=== PATIENT | female | born 1970 | race Asian ===

== ENCOUNTER → 2017-10-10 | Outpatient (REF) | payer OTHER ==
[2017-10-10 14:44] LABS: RHEUMATOID FACTOR QUANT < 10.0 IU/ML (0-15.0)
[2017-10-11 14:11] LABS: ANTINUCLEAR ANTIBODIES DIRECT Negative (Negative)
== END ==
LOC: M LAB REF 13:10
DX: M15.9 Polyosteoarthritis, unspecified (principal); M25.561 Pain in right knee
CPT/HCPCS: 86038

== ENCOUNTER 2018-01-05 22:38 | Emergency (ER) | payer OTHER ==
[2018-01-05 23:27] LABS: BASO % 0.3 % (0.0-1.0); EOS # 0.4 10^3/uL (0.0-0.50); HEMATOCRIT 37.9 % (36.0-47.0); HEMOGLOBIN 12.4 g/dl (12.0-15.5); IMMATURE GRANULOCYTE % 0.7 % (0-3.0); LYMPH % 24.6 % (24.0-44.0); MEAN CORPUSCULAR HEMOGLOBIN 28.1 pg (27.0-33.0); MEAN CORPUSCULAR HGB CONC 32.7 g/dl (32.0-36.5); MEAN CORPUSCULAR VOLUME 85.9 fl (80.0-96.0); MONO # 0.7 10^3/uL (0.0-0.8); MONO % 5.3 % (0.0-5.0); NEUTROPHILS # 8.1 10^3/uL (1.8-7.7); NEUTROPHILS % 66.1 % (36.0-66.0); PLATELET COUNT, AUTOMATED 306 10^3/uL (150-450); RED BLOOD COUNT 4.41 10^6/uL (4.00-5.40); RED CELL DISTRIBUTION WIDTH 13.4 % (11.5-14.5); WHITE BLOOD COUNT 12.2 10^3/uL (4.0-10.0)
[2018-01-05] MEDS ORDERED: cloNIDine 0.1 MG TAB PO ×2 (23:30)
[2018-01-05] MEDS ORDERED: ASPIRIN 81 MG CHEW TABLET PO ×2 (23:30)
[2018-01-05 23:37] LABS: INR 0.97
[2018-01-05] MEDS: NS 1,000 ML IV ×2 (23:39)
[2018-01-05] MEDS: METOPROLOL TART 25 MG TABLET PO ×2 (23:40)
[2018-01-05] MEDS: LABETALOL HCL 100 MG/20 ML VIAL IV ×2 (23:40)
[2018-01-05 23:52] LABS: ALBUMIN 3.2 GM/DL (3.2-5.2); ALBUMIN/GLOBULIN RATIO 0.78 (1.00-1.93); ALKALINE PHOSPHATASE 115 U/L (45-117); ALT/SGPT 51 U/L (12-78); ANION GAP 7 MEQ/L (8-16); AST/SGOT 27 U/L (7-37); BILIRUBIN,DIRECT < 0.1 MG/DL (0.0-0.2); BILIRUBIN,TOTAL 0.2 MG/DL (0.2-1.0); BLOOD UREA NITROGEN 8 MG/DL (7-18); CALCIUM LEVEL 8.4 MG/DL (8.5-10.1); CARBON DIOXIDE LEVEL 27 MEQ/L (21-32); CHLORIDE LEVEL 105 MEQ/L (98-107); CPK CREATINE PHOSPHOKINASE 36 U/L (26-192); CREATININE FOR GFR 0.52 MG/DL (0.55-1.30); GLOMERULAR FILTRATION RATE > 60.0 (>58); GLUCOSE, FASTING 105 MG/DL (70-100); POTASSIUM SERUM 3.6 MEQ/L (3.5-5.1); SODIUM LEVEL 139 MEQ/L (136-145); TOTAL PROTEIN 7.3 GM/DL (6.4-8.2); TROPONIN I < 0.02 NG/ML (< 0.10)
[2018-01-05 23:53] LABS: CK-MB VALUE MASS < 1.0 NG/ML (<3.6); MB/CK RELATIVE INDEX 2.77 (< OR =4)
== END 2018-01-06 02:07 | disposition home or self-care (01) ==
LOC: M ED 01-06 00:03
DX: I10 Essential (primary) hypertension (principal); E11.9 Type 2 diabetes mellitus without complications; G43.909 Migraine, unspecified, not intractable, without status migrainosus; Z79.84 Long term (current) use of oral hypoglycemic drugs; Z88.8 Allergy status to other drugs, medicaments and biological substances; Z88.6 Allergy status to analgesic agent
CPT/HCPCS: 71045

== ENCOUNTER 2018-01-09 11:15 | Inpatient (IN) | payer OTHER ==
[~2018-01-09 11:15] MED LIST: ENOXAPARIN 30 MG/0.3 ML SYR (J1650) SC
[2018-01-09 11:55] LABS: BASO # 0.1 10^3/uL (0.0-0.2); BASO % 0.6 % (0.0-1.0); EOS # 0.3 10^3/uL (0.0-0.50); EOS % 2.5 % (0.0-3.0); HEMATOCRIT 40.7 % (36.0-47.0); IMMATURE GRANULOCYTE % 0.6 % (0-3.0); LYMPH # 2.5 10^3/uL (1.5-4.5); LYMPH % 24.5 % (24.0-44.0); MEAN CORPUSCULAR HEMOGLOBIN 27.9 pg (27.0-33.0); MEAN CORPUSCULAR HGB CONC 31.9 g/dl (32.0-36.5); MEAN CORPUSCULAR VOLUME 87.3 fl (80.0-96.0); MONO # 0.5 10^3/uL (0.0-0.8); NEUTROPHILS # 6.7 10^3/uL (1.8-7.7); NEUTROPHILS % 66.8 % (36.0-66.0); PLATELET COUNT, AUTOMATED 329 10^3/uL (150-450); RED BLOOD COUNT 4.66 10^6/uL (4.00-5.40); RED CELL DISTRIBUTION WIDTH 13.4 % (11.5-14.5)
[2018-01-09 12:09] LABS: INR 1.05; PROTHROMBIN TIME 13.8 SECONDS (12.4-14.5)
[2018-01-09 12:10] LABS: PARTIAL THROMBOPLASTIN TIME 32.3 SECONDS (26.8-37.9)
[2018-01-09 12:26] LABS: ANION GAP 6 MEQ/L (8-16); BLOOD UREA NITROGEN 12 MG/DL (7-18); CARBON DIOXIDE LEVEL 29 MEQ/L (21-32); CHLORIDE LEVEL 104 MEQ/L (98-107); CK-MB VALUE MASS < 1.0 NG/ML (<3.6); CPK CREATINE PHOSPHOKINASE 55 U/L (26-192); CREATININE FOR GFR 0.67 MG/DL (0.55-1.30); GLOMERULAR FILTRATION RATE > 60.0 (>58); GLUCOSE, FASTING 161 MG/DL (70-100); MB/CK RELATIVE INDEX 1.81 (< OR =4); POTASSIUM SERUM 4.1 MEQ/L (3.5-5.1); SODIUM LEVEL 139 MEQ/L (136-145); TROPONIN I < 0.02 NG/ML (< 0.10)
[2018-01-09] MEDS: hydrALAZINE INJ 20 MG/ML VIAL IV (13:07)
[2018-01-09] MEDS: diphenhydrAMINE 25 MG CAP PO (14:22)
[2018-01-09] MEDS: LISINOPRIL 10 MG TAB PO (14:22)
[2018-01-09 15:45] LABS: THYROID STIMULATING HORMONE 0.811 uIU/ML (0.358-3.740)
[2018-01-09] MEDS: DILUENT IV (16:00)
[2018-01-09] MEDS: NITROPRUSSIDE SODIUM IV (16:00)
[2018-01-09] MEDS: ENOXAPARIN 40 MG/0.4 ML SYRINGE (J1650) SC (18:20)
[2018-01-09 18:21] LABS: CREATININE, URINE 22.6 MG/DL; MALB URINE SIEMENS < 5.0 MG/L; MAU/CREAT RATIO 22.1 MCG/MG (0.0-30.0)
[2018-01-09] MEDS: amLODIPine 5 MG TAB PO (18:44)
[2018-01-09] MEDS: metFORMIN (GLUCOPHAGE) 1000 MG TABLET PO (22:29)
[2018-01-10 05:14] LABS: HEMATOCRIT 39.9 % (36.0-47.0); HEMOGLOBIN 12.9 g/dl (12.0-15.5); MEAN CORPUSCULAR HEMOGLOBIN 27.7 pg (27.0-33.0); MEAN CORPUSCULAR HGB CONC 32.3 g/dl (32.0-36.5); MEAN CORPUSCULAR VOLUME 85.6 fl (80.0-96.0); PLATELET COUNT, AUTOMATED 332 10^3/uL (150-450); RED BLOOD COUNT 4.66 10^6/uL (4.00-5.40); RED CELL DISTRIBUTION WIDTH 13.5 % (11.5-14.5); WHITE BLOOD COUNT 12.5 10^3/uL (4.0-10.0)
[2018-01-10 05:38] LABS: ANION GAP 7 MEQ/L (8-16); BLOOD UREA NITROGEN 12 MG/DL (7-18); CALCIUM LEVEL 8.5 MG/DL (8.5-10.1); CARBON DIOXIDE LEVEL 25 MEQ/L (21-32); CHLORIDE LEVEL 108 MEQ/L (98-107); CREATININE FOR GFR 0.62 MG/DL (0.55-1.30); GLOMERULAR FILTRATION RATE > 60.0 (>58); GLUCOSE, FASTING 118 MG/DL (70-100); POTASSIUM SERUM 3.6 MEQ/L (3.5-5.1); SODIUM LEVEL 140 MEQ/L (136-145)
[2018-01-10] MEDS ORDERED: GLUCOSE 4 GM CHEW TABLET PO (06:45)
[2018-01-10] MEDS ORDERED: DEXTROSE 50% 50 ML SYRINGE IV (06:45)
[2018-01-10] MEDS ORDERED: GLUCAGON FOR INJ 1 MG VIAL (J1610) SC (06:45)
[2018-01-10] MEDS: HumaLOG INSULIN (NovoLOG) PER UNIT SC ×4 (07:11→21:00)
[2018-01-10] MEDS: amLODIPine 10 MG TAB PO (08:39)
[2018-01-10] MEDS: LISINOPRIL 20 MG TAB PO ×2 (08:40→21:20)
[2018-01-10] MEDS: cloNIDine 0.1 MG TAB PO ×3 (08:40→21:00)
[2018-01-10] MEDS ORDERED: CARVedilol 6.25 MG TAB PO (09:00)
[2018-01-10] MEDS ORDERED: LISINOPRIL 10 MG TAB PO (09:00)
[2018-01-10 12:01] LABS: BEDSIDE GLUCOSE 220 MG/DL (70-105)
[2018-01-10] MEDS: ENOXAPARIN 40 MG/0.4 ML SYRINGE (J1650) SC (12:38)
[2018-01-10 16:59] LABS: BEDSIDE GLUCOSE 109 MG/DL (70-105)
[2018-01-10 21:29] LABS: BEDSIDE GLUCOSE 140 MG/DL (70-105)
[2018-01-10] MEDS ORDERED: ACETAMINOPHEN TAB 650MG DOSE (2X325MG) PO (22:30)
[2018-01-11] MEDS: HumaLOG INSULIN (NovoLOG) PER UNIT SC ×2 (07:30→11:35)
[2018-01-11 07:41] LABS: HEMATOCRIT 42.2 % (36.0-47.0); HEMOGLOBIN 13.5 g/dl (12.0-15.5); MEAN CORPUSCULAR HEMOGLOBIN 27.6 pg (27.0-33.0); MEAN CORPUSCULAR VOLUME 86.3 fl (80.0-96.0); PLATELET COUNT, AUTOMATED 362 10^3/uL (150-450); RED BLOOD COUNT 4.89 10^6/uL (4.00-5.40); RED CELL DISTRIBUTION WIDTH 13.5 % (11.5-14.5); WHITE BLOOD COUNT 9.4 10^3/uL (4.0-10.0)
[2018-01-11 07:54] LABS: ANION GAP 5 MEQ/L (8-16); BLOOD UREA NITROGEN 13 MG/DL (7-18); CALCIUM LEVEL 8.8 MG/DL (8.5-10.1); CARBON DIOXIDE LEVEL 28 MEQ/L (21-32); CHLORIDE LEVEL 106 MEQ/L (98-107); CREATININE FOR GFR 0.68 MG/DL (0.55-1.30); GLOMERULAR FILTRATION RATE > 60.0 (>58); GLUCOSE, FASTING 115 MG/DL (70-100); POTASSIUM SERUM 3.7 MEQ/L (3.5-5.1); SODIUM LEVEL 139 MEQ/L (136-145)
[2018-01-11] MEDS: ENOXAPARIN 40 MG/0.4 ML SYRINGE (J1650) SC (08:12)
[2018-01-11] MEDS: LISINOPRIL 20 MG TAB PO (08:13)
[2018-01-11] MEDS: cloNIDine 0.1 MG TAB PO (08:13)
[2018-01-11] MEDS: amLODIPine 10 MG TAB PO (08:13)
[2018-01-11 11:33] LABS: BEDSIDE GLUCOSE 90 MG/DL (70-105)
== END 2018-01-11 14:11 | disposition home or self-care (01) | DRG 305 ==
LOC: M PED 01-10 10:53 → M ED 11:15 → M ED INP 16:04 → M ICU 17:22
DX: I16.0 Hypertensive urgency (principal); R00.1 Bradycardia, unspecified; T46.5X5A Adverse effect of other antihypertensive drugs, initial encounter; I10 Essential (primary) hypertension; E11.9 Type 2 diabetes mellitus without complications; Z79.84 Long term (current) use of oral hypoglycemic drugs; Z79.899 Other long term (current) drug therapy; Z88.8 Allergy status to other drugs, medicaments and biological substances

== ENCOUNTER → 2018-01-21 | Outpatient (CLI) | payer OTHER ==
[2018-01-21 07:13] LABS: APPEARANCE, URINE CLEAR (CLEAR); BACTERIA, URINE AUTO NEGATIVE (NEGATIVE); BILIRUBIN, URINE AUTO NEGATIVE (NEGATIVE); BLOOD, URINE BLOOD NEGATIVE (NEGATIVE); COLOR, URINE YELLOW (YELLOW); GLUCOSE, URINE (UA) AUTO NEGATIVE (NEGATIVE); KETONE, URINE AUTO NEGATIVE (NEGATIVE); LEUKOCYTE ESTERASE, URINE AUTO NEGATIVE (NEGATIVE); NITRITE, URINE AUTO NEGATIVE (NEGATIVE); PROTEIN, URINE AUTO NEGATIVE (NEGATIVE); RBC, URINE AUTO 1 /HPF (0-3); SPECIFIC GRAVITY URINE AUTO 1.017 (1.002-1.035); SQUAMOUS EPITHELIAL CELL UR AU 0 /HPF (0-6); UROBILINOGEN, URINE AUTO 0.2 mg/dL (0.0-2.0); WBC, URINE AUTO 1 /HPF (0-3)
[2018-01-21 08:05] LABS: CHOLESTEROL LEVEL 180 MG/DL (<200); CHOLESTEROL RISK RATIO 2.571 (<5); HDL CHOLESTEROL 70 MG/DL (>40); NON-HDL-C 110 MG/DL; TRIGLYCERIDES LEVEL 150 MG/DL (<150)
== END ==
LOC: M LAB 06:15
DX: R07.2 Precordial pain (principal); I10 Essential (primary) hypertension
CPT/HCPCS: 80061

== ENCOUNTER → 2018-01-21 | Outpatient (CLI) | payer OTHER ==
[2018-01-21 07:07] LABS: BASO # 0.1 10^3/uL (0.0-0.2); BASO % 1.2 % (0.0-1.0); EOS # 0.2 10^3/uL (0.0-0.50); HEMATOCRIT 40.1 % (36.0-47.0); IMMATURE GRANULOCYTE % 0.1 % (0-3.0); LYMPH # 2.4 10^3/uL (1.5-4.5); LYMPH % 31.8 % (24.0-44.0); MEAN CORPUSCULAR HEMOGLOBIN 28.3 pg (27.0-33.0); MEAN CORPUSCULAR HGB CONC 32.4 g/dl (32.0-36.5); MEAN CORPUSCULAR VOLUME 87.2 fl (80.0-96.0); MONO # 0.4 10^3/uL (0.0-0.8); MONO % 5.8 % (0.0-5.0); NEUTROPHILS # 4.4 10^3/uL (1.8-7.7); NEUTROPHILS % 58.1 % (36.0-66.0); PLATELET COUNT, AUTOMATED 337 10^3/uL (150-450); RED CELL DISTRIBUTION WIDTH 13.4 % (11.5-14.5); WHITE BLOOD COUNT 7.6 10^3/uL (4.0-10.0)
[2018-01-21 07:42] LABS: ANION GAP 10 MEQ/L (8-16); BLOOD UREA NITROGEN 13 MG/DL (7-18); CALCIUM LEVEL 9.1 MG/DL (8.5-10.1); CARBON DIOXIDE LEVEL 28 MEQ/L (21-32); CHLORIDE LEVEL 102 MEQ/L (98-107); CHOLESTEROL LEVEL 179 MG/DL (<200); CHOLESTEROL RISK RATIO 2.557 (<5); CREATININE FOR GFR 0.66 MG/DL (0.55-1.30); GLOMERULAR FILTRATION RATE > 60.0 (>58); GLUCOSE, FASTING 121 MG/DL (70-100); HDL CHOLESTEROL 70 MG/DL (>40); LDL CHOLESTEROL 78.8 MG/DL (<100); NON-HDL-C 109 MG/DL; POTASSIUM SERUM 4.5 MEQ/L (3.5-5.1); SODIUM LEVEL 140 MEQ/L (136-145); TRIGLYCERIDES LEVEL 151 MG/DL (<150)
[2018-01-21 07:51] LABS: MALB URINE SIEMENS 9.7 MG/L; MAU/CREAT RATIO 6.1 MCG/MG (0.0-30.0)
[2018-01-21 08:53] LABS: ESTIMATED AVERAGE GLUCOSE 146 MG/DL (60-110); HEMOGLOBIN A1c 6.7 %
== END ==
LOC: M LAB 06:18
DX: E11.9 Type 2 diabetes mellitus without complications (principal); I10 Essential (primary) hypertension
CPT/HCPCS: 83036

== ENCOUNTER 2020-11-04 09:34 | Emergency (ER) | payer BC, OTHER ==
[~2020-11-04] VITALS: Ht 162.6 cm; Wt 72.7 kg
[~2020-11-04 09:34] MED LIST changes: +AMLO1TAB25 PO; +CARV6.25 PO; -ENOXAPARIN 30 MG/0.3 ML SYR (J1650) SC; +LISI10TA22 PO; +LISI20TA33 PO; +METF10004 PO; +METO50TA7 PO
--- NOTE | 2020-11-04 10:36 | REP ---
INDICATION: CVA - Nursing interventions must not delay CT. COMPARISON: None. TECHNIQUE: CT BRAIN PERFORMED IN THE AXIAL PLANE. CORONAL RECONSTRUCTION IMAGES ARE PERFORMED. FINDINGS: THE VENTRICLES ARE NORMAL IN SIZE AND POSITION. THERE IS NO MIDLINE SHIFT OR MASS EFFECT. GALICIA-WHITE DIFFERENTIATION IS WELL MAINTAINED. WHITE MATTER TRACTS SYMMETRIC AND UNREMARKABLE. BASAL GANGLIA ARE UNREMARKABLE. THERE IS A SMALL CALCIFICATION IN THE LEFT BASAL GANGLIA WHICH IS A NORMAL FINDING IN THIS AGE GROUP. THERE IS NO ACUTE INFARCT, MASS, INTRACRANIAL HEMORRHAGE OR EXTRA-AXIAL FLUID COLLECTION. POSTERIOR FOSSA WAS GROSSLY UNREMARKABLE. THE BASAL CISTERNS ARE INTACT. BONE WINDOW EXAMINATION IS UNREMARKABLE. VISUALIZED MASTOID AIR CELLS AND PARANASAL SINUSES ARE CLEAR. IMPRESSION: NEGATIVE NONCONTRAST CT BRAIN. THERE IS NO EVIDENCE OF ACUTE INFARCT, INTRACRANIAL HEMORRHAGE OR OTHER ACUTE FINDING ON THIS EXAMINATION. <Electronically signed by Wing Hernandez > 11/04/20 [id number]
[2020-11-04 10:37] LABS: BASO # 0.1 10^3/uL (0.0-0.2); BASO % 0.6 % (0.0-1.0); EOS # 0.2 10^3/uL (0.0-0.5); EOS % 2.4 % (0.0-3.0); HEMATOCRIT 40.1 % (36.0-47.0); HEMOGLOBIN 12.7 g/dl (12.0-15.5); LYMPH # 2.5 10^3/uL (1.5-5.0); LYMPH % 24.4 % (24.0-44.0); MEAN CORPUSCULAR HEMOGLOBIN 27.9 pg (27.0-33.0); MEAN CORPUSCULAR HGB CONC 31.7 g/dl (32.0-36.5); MEAN CORPUSCULAR VOLUME 87.9 fl (80.0-96.0); MONO # 0.5 10^3/uL (0.0-0.8); MONO % 4.6 % (2.0-8.0); NEUTROPHILS # 6.9 10^3/uL (1.5-8.5); NEUTROPHILS % 67.6 % (36.0-66.0); PLATELET COUNT, AUTOMATED 332 10^3/uL (150-450); RED BLOOD COUNT 4.56 10^6/uL (4.00-5.40); WHITE BLOOD COUNT 10.2 10^3/uL (4.0-10.0)
[2020-11-04] MEDS ORDERED: ISOVUE-370 76% 100ML VIAL As Ordered ONE (11:02)
[2020-11-04 11:09] LABS: CK-MB VALUE MASS < 1.0 NG/ML (<3.6); CPK CREATINE PHOSPHOKINASE 43 U/L (26-192); MB/CK RELATIVE INDEX 2.33 (< OR =4); TROPONIN I < 0.02 NG/ML (< 0.10)
--- NOTE | 2020-11-04 11:33 | REP ---
INDICATION: CVA. COMPARISON: PA and lateral chest dated 01/09/2018. TECHNIQUE: Portable AP chest with the patient upright. FINDINGS: The lung delgado are clear. Cardiac size is normal. The nadiya, mediastinum and skeletal structures are unremarkable. IMPRESSION: Essentially negative portable chest There is no interval change. <Electronically signed by Darin Levy > 11/04/20 [id number]
[2020-11-04 11:46] LABS: INR 0.96; PARTIAL THROMBOPLASTIN TIME 32.2 SECONDS (24.2-38.5); PROTHROMBIN TIME 12.9 SECONDS (12.5-14.3)
--- NOTE | 2020-11-04 11:58 | REP ---
INDICATION: CVA - Nursing interventions must not delay CT. COMPARISON: Noncontrast CT 11/04/2020, 01/08/2018.. TECHNIQUE: Bolus 100 mL of Isovue 370 scanning through the brain with coronal and sagittal standard and MIP reformats provided. FINDINGS: On these contrast images there is no evidence of an enhancing mass, abnormal meningeal enhancement, gyral enhancement or vascular anomaly. Distal vertebral arteries, basilar artery and the bilateral posterior cerebral arteries are without a stenosis or vessel cut off. Posterior cerebrals show symmetric supply to the posterior fossa. The internal carotids below and then through the carotid siphons are symmetric and without stenosis. Supraclinoid internal carotids, middle cerebrals, anterior cerebrals and posterior communicating arteries are all unremarkable. The M2 and M3 branches are normal bilaterally. No vessel cut off, aneurysm or stenosis. IMPRESSION: 1. No evidence of intracranial aneurysm, stenosis, vascular anomaly, enhancing mass or abnormal dural enhancement. Negative CT angiogram brain. <Electronically signed by Wing Hernandez > 11/04/20 [id number]
--- NOTE | 2020-11-04 12:11 | REP ---
INDICATION: CVA COMPARISON: NONE TECHNIQUE: Bolus of 100 mL Isovue 370 with axial scans through the neck from skull base to the aortic arch. Coronal and sagittal reconstructions in standard and MIP reformats provided. FINDINGS: The 3 great vessels off the arch show no stenosis at their origins. I do not see any significant atherosclerotic plaque at the arch or proximal vessels arising from it. The right common carotid artery was unremarkable. There is minimal atherosclerotic disease at the bulb without stenosis of the bulb or right ICA to the carotid siphon. The left common carotid artery is also unremarkable and is without stenosis minimal amount of plaque at the bulb with no stenosis of the bulb and left ICA to the carotid siphon. Symmetric vertebral arteries to the skull base with the slightly larger distal right and left vertebral artery contribution to the basilar artery. There is a small amount of vascular calcification in the distal right vertebral a just above the level of the foramen magnum. That short portion of basilar artery seen was unremarkable. Soft tissues of the neck show symmetric parotid and submandibular glands there is scattered low-density nodules in the thyroid lobes. No visible adenopathy in the neck. Portions of orbits and contents included were unremarkable. The bone windows show that portion of the skull base with no acute opacification of the mastoids but some chronic sclerotic changes peripherally on the left the minimal mucosal thickening some of the posterior ethmoid air cells with the visible maxillary and sphenoid sinuses clear. The cervical spine was unremarkable. Airway intact. No visible mass. Lung apices were unremarkable. IMPRESSION: 1. Minimal atherosclerotic plaque at the carotid bulbs and into the proximal right ICA but not the left. Neither ICA shows significant stenosis from the bulb to the skull base along the entire course of the internal carotids. 2. Vertebral arteries symmetric UA in the neck with slightly larger diameter right than left vertebral just before the basilar artery. Small calcification in the distal vertebral artery noted. No stenosis. 3. Incidental note made of multiple low-density nodules in the thyroid. This can be followed with routine sonography. 4. No neck masses, adenopathy or other acute finding. <Electronically signed by Wing Hernandez > 11/04/20 [id number]
--- NOTE | 2020-11-04 13:22 | ECGEPIP ---
[facility] - ED Test Date: 2020-11-04 Pat Name: ERIN GARCIA Department: Room: - Gender: Female [employer] Job Titles: SAJI : 1970 Requested By: Nicole Austin Order Number: [id number] Reading MD: Nicole Austin Measurements Intervals [place] Rate: 66 P: 23 IA: 140 QRS: 22 QRSD: 90 T: 20 QT: 418 QTc: 438 Interpretive Statements Normal sinus rhythm Nonspecific ST T wave changes cw 01/09/[address] T wave changes Electronically Signed on 11-04-2020 13:22:26 EDT by Nicole Austin
--- NOTE | 2020-11-04 17:48 | REPVR ---
PROCEDURE INFORMATION: Exam: MR Head Without Contrast Exam date and time: 11/04/2020 5:31 PM Age: 50 years old Clinical indication: Other: Blurred vision, difficulty walking straight line TECHNIQUE: Imaging protocol: MR of the head without contrast. COMPARISON: CT Head without contrast 11/04/2020 10:13 AM FINDINGS: Brain: There are minimal frontal subcortical small hyperintense foci. DWI demonstrates no evidence of acute infarct. Gradient echo images-hemorrhage. There is no extra-axial collection. There is no mass. There are no abnormal flow voids. Cerebral ventricles: There is no hydrocephalus. Bones/joints: Unremarkable. Paranasal sinuses: Normal as visualized. No acute sinusitis. Mastoid air cells: Normal as visualized. No mastoid effusion. Orbital cavity: Unremarkable. Soft tissues: Unremarkable. IMPRESSION: 1. A few small hyperintense foci in the focal white matter could represent minimal foci of microvascular or demyelinating disease. Often such minimal foci are idiopathic with no clinical correlate. 2. No acute intracranial lesion or injury. Electronically signed by: Ravi Song On 11/04/2020 17:48:50 PM
[2020-11-04] MEDS ORDERED: ASPI81CH33 PO (18:00)
[2020-11-04] MEDS ORDERED: ASPIRIN 81 MG CHEW TABLET PO ONE (18:00)
[2020-11-04 18:15] VITALS: BP 157/78
== END 2020-11-04 19:09 | disposition home or self-care (01) ==
LOC: EDBD 09:34 → M ED 09:34
DX: I10 Essential (primary) hypertension (principal); E11.9 Type 2 diabetes mellitus without complications; Z88.8 Allergy status to other drugs, medicaments and biological substances
CPT/HCPCS: 36415; 70450; 70496; 70498; 70551; 71045; 80047; 82550; 82553; 84484; 85025; 85610; 85730; 93005; 93041; 94760; 99285; Q9967

== ENCOUNTER → 2020-12-08 | Outpatient (CLI) | payer BC ==
[~2020-12-08] MED LIST changes: +ASPI81CH33 PO
--- NOTE | 2020-12-09 09:20 | REP ---
INDICATION: PELVIC PAIN COMPARISON: None. TECHNIQUE: Transabdominal pelvic ultrasound followed by transvaginal examination for better evaluation of the endometrium and adnexa with color Doppler evaluation of the ovaries. FINDINGS: Bladder is unremarkable and measures 9.0 x 3.9 x 8.5 cm. Heterogeneous uterus measures 10.5 x 9.3 x 8.2 cm with a posterior intramural/submucosal fibroid measuring 6.8 x 5.9 x 4.7 cm. The endometrial complex measures 7.6 mm thickness. Few small subcentimeter nabothian cysts in the cervix also identified. Right ovary is not visualized. Left ovary measures 3.9 x 3.1 x 3.6 cm including 2.8 x 2.2 x 2.8 cm cyst; R I = 0.38. No pelvic fluid or adnexal mass lesion. IMPRESSION: 6.8 cm submucosal fibroid. 2.8 cm left ovarian cyst. <Electronically signed by Tushar Easley > 12/09/20 0916
== END ==
LOC: M RAD 12:31
PROVIDERS: ATTEND Internal Medicine
DX: D25.0 Submucous leiomyoma of uterus (principal); N83.202 Unspecified ovarian cyst, left side

== ENCOUNTER 2021-06-22 10:57 | Emergency (ER) | payer BC ==
[~2021-06-22] VITALS: Ht 162.6 cm; Wt 73.2 kg
--- OUTSIDE RECORDS SUMMARY | 2021-06-22 11:03 | CCD ---
Author Author [facility] Organization [facility] Address Unknown Phone Unavailable Care Team Providers Care Manager Rfid Name Role Phone Gabriela, Flower DO Unavailable Unavailable Gabriela, Flower DO Unavailable Unavailable Gabriela, Flower DO Unavailable Unavailable Gabriela, Flower DO Unavailable Unavailable Gabriela, Flower DO Unavailable Unavailable Gabriela, Flower DO Unavailable Unavailable Gabriela, Flower DO Unavailable Unavailable Gabriela, Flower DO Unavailable Unavailable Gabriela, Flower DO Unavailable Unavailable Gabriela, Flower DO Unavailable Unavailable Gabriela, Flower DO Unavailable Unavailable Gabriela, Flower DO Unavailable Unavailable Gabriela, Flower DO Unavailable Unavailable Gabriela, Flower DO Unavailable Unavailable Gabriela, Flower DO Unavailable Unavailable Gabriela, Flower DO Unavailable Unavailable Gabriela, Flower DO Unavailable Unavailable Gabriela, Flower DO Unavailable Unavailable Gabriela, Flower DO Unavailable Unavailable Gabriela, Flower DO Unavailable Unavailable Gabriela, Flower DO Unavailable Unavailable Gabriela, Flower DO Unavailable Unavailable Gabriela, Flower DO Unavailable Unavailable Gabriela, Flower DO Unavailable Unavailable Gabriela, Flower DO Unavailable Unavailable Gabriela, Flower DO Unavailable Unavailable Gabriela, Flower DO Unavailable Unavailable Gabriela, Flower DO Unavailable Unavailable Gabriela, Flower DO Unavailable Unavailable Gabriela, Flower DO Unavailable Unavailable Gabriela, Flower DO Unavailable Unavailable Gabriela, Flower DO Unavailable Unavailable Gabriela, Flower DO Unavailable Unavailable Gabriela, Flower DO Unavailable Unavailable Gabriela, Flower DO Unavailable Unavailable Gabriela, Flower DO Unavailable Unavailable Gabriela, Flower DO Unavailable Unavailable Gabriela, Flower DO Unavailable Unavailable Gabriela, Flower DO Unavailable Unavailable Gabriela, Flower DO Unavailable Unavailable Gabriela, Flower DO Unavailable Unavailable Gabriela, Flower DO Unavailable Unavailable Gabriela, Flower DO Unavailable Unavailable Gabriela, Flower DO Unavailable Unavailable Gabriela, Flower DO Unavailable Unavailable Gabriela, Flower DO Unavailable Unavailable Gabriela, Flower DO Unavailable Unavailable Gabriela, Flower DO Unavailable Unavailable Gabriela, Flower DO Unavailable Unavailable Gabriela, Flower DO Unavailable Unavailable Gabriela, Flower DO Unavailable Unavailable Gabriela, Flower DO Unavailable Unavailable Gabriela, Flower DO Unavailable Unavailable Gabriela, Flower DO Unavailable Unavailable Gabriela, Flower DO Unavailable Unavailable Gabriela, Flower DO Unavailable Unavailable Gabriela, Flower DO Unavailable Unavailable Gabriela, Flower DO Unavailable Unavailable Gabriela, Flower DO Unavailable Unavailable Gabriela, Flower DO Unavailable Unavailable Gabriela, Flower DO Unavailable Unavailable Gabriela, Flower DO Unavailable Unavailable Gabriela, Flower DO Unavailable Unavailable Gabriela, Flower DO Unavailable Unavailable Gabriela, Flower DO Unavailable Unavailable Gabriela, Flower DO Unavailable Unavailable Gabriela, Flower DO Unavailable Unavailable Gabriela, Flower DO Unavailable Unavailable Gabriela, Flower DO Unavailable Unavailable Gabriela, Flower DO Unavailable Unavailable Gabriela, Flower DO Unavailable Unavailable Gabriela, Flower DO Unavailable Unavailable Gabriela, Flower DO Unavailable Unavailable Gabriela, Flower DO Unavailable Unavailable Re-disclosure Warning The records that you are about to access may contain information from federally-assisted alcohol or drug abuse programs. If such information is present, then the following federally mandated warning applies: This information has been disclosed to you from records protected by federal confidentiality rules (42 CFR part 2). The federal rules prohibit you from making any further disclosure of this information unless further disclosure is expressly permitted by the written consent of the person to whom it pertains or as otherwise permitted by 42 CFR part 2. A general authorization for the release of medical or other information is NOT sufficient for this purpose. The Federal rules restrict any use of the information to criminally investigate or prosecute any alcohol or drug abuse patient.The records that you are about to access may contain highly sensitive health information, the redisclosure of which is protected by Article 27-F of the [facility] Public Health law. If you continue you may have access to information: Regarding HIV / AIDS; Provided by facilities licensed or operated by the [facility] Office of Mental Health; or Provided by the [facility] Office for People With Developmental Disabilities. If such information is present, then the following [facility] mandated warning applies: This information has been disclosed to you from confidential records which are protected by state law. State law prohibits you from making any further disclosure of this information without the specific written consent of the person to whom it pertains, or as otherwise permitted by law. Any unauthorized further disclosure in violation of state law may result in a fine or care home sentence or both. A general authorization for the release of medical or other information is NOT sufficient authorization for further disc losure. Family History Family Member Name Family Member Gender Family Member Status Date o f Status Description Data Source(s) Unknown Unknown Problem [facility] ([facility]) Unknown Male Problem [facility] ([facility]) at age 55 Encounters Encounter Providers Location Date Indications Data Source(s ) Outpatient Attender: Flower Bal 02/07 03:30:00 PM EDT [facility] ([facility] ) Outpatient Attender: Flower Bal 12/06 03:30:00 PM EDT [facility] ([facility] ) Outpatient Attender: Flower Bal 11/07 02:45:00 PM EDT [facility] ([facility] ) Outpatient Attender: Flower Bal 09/06 02:15:00 PM EST [facility] ([facility] ) Medications Medication Brand Name Start Date Product Form Dose Route Admi nistrative Instructions Pharmacy Instructions Status Indications Reaction Description Data Source(s) Naproxen 500 MG Oral Tablet Naproxen 12/06/2020 12:00:00 AM EDT ORAL active [facility] ([facility]) Glucosamine Chondroitin 1500 Complex Maximum Strength 11/07/2020 12:00:00 AM EDT ORAL active [facility] ([facility]) Insurance Providers Payer name Policy type / Coverage type Policy ID Covered alliance party ID Covered alliance party's relationship to post Policy Post Plan Information [employer] FEDERAL EMPLOYEE PROGRAM [id number] SP [id number] [facility] [id number] SP [id number] [place] [facility] 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 [id number] S [id number] SELF PAY O UNAVAILABLE S UNAVAILA BLE Problems, Conditions, and Diagnoses No Information Surgeries/Procedures Procedure Description Date Indications Data Source(s) OFFICE OUTPATIENT VISIT 25 MINUTES 02/07/2021 12:00:00 AM EDT [facility] ([facility]) Diabetic Retinal Eye Exam 01/26/2021 12:00:00 AM EDT [facility] ([facility]) OFFICE OUTPATIENT VISIT 25 MINUTES 12/06/2020 12:00:00 AM EDT [facility] ([facility]) OFFICE OUTPATIENT VISIT 25 MINUTES 11/07/2020 12:00:00 AM EDT [facility] ([facility]) Mammogram 09/22/2020 12:00:00 AM EST M EDENT ([facility]) PERIODIC PREVENTIVE MED EST PATIENT 40-64YRS 12:00:00 AM EST [facility] ([facility]) Results ID Date Data Source [id number] 02/07/2021 03:44:00 PM EDT [facility] ([facility]) Name Value Range Interpretation Code Description Data Mariia rce(s) Supporting Document(s) Hemoglobin A1c/Hemoglobin.total in Blood 7.8 % [facility] ([facility]) Lab Result Notes: Pre-Diabetes 5.7 - 6.4 % Diabetes = or > 6.5% Glucose mean value [Mass/volume] in Blood Estimated fr om glycated hemoglobin 177 mg/dL 60-110 [facility] ([facility] ) ID Date Data Source [id number] 02/07/2021 03:44:00 PM EDT [facility] ([facility]) Name Value Range Interpretation Code Description Data Mariia rce(s) Supporting Document(s) Glucose [Mass/volume] in Serum or Plasma 243 mg/dL 74-99 [facility] ([facility]) 100-125 mg/dL PRE-DIABETES/FASTING >126 mg/dL DIABETES/FASTING Urea nitrogen [Mass/volume] in Serum or Plasma 10 mg/dL 7-18 [facility] ([facility]) Creatinine 0.7 mg/dL 0.6-1.3 [facility] ([facility] Potassium [Moles/volume] in Serum or Plasma 3.5 meq/L 3.5-5.1 [facility] ([facility]) Sodium [Moles/volume] in Serum or Plasma 138 meq/L 136-145 [facility] ([facility]) Carbon dioxide, total [Moles/volume] in Serum or Plasma 31 meq/L 21 -32 [facility] ([facility]) Chloride [Moles/volume] in Serum or Plasma 100 meq/L 98-107 [facility] ([facility]) Calcium [Mass/volume] in Serum or Plasma 9.1 mg/dL 8.5-10.1 [facility] ([facility] Glomerular filtration rate/1.73 sq M pre dicted among non-blacks [Volume Rate/Area] in Serum or Plasma by Creatinine-based formula (MDRD) Laboratory test result [facility] ([facility] Glomerular filtration rate/1.73 sq M pre dicted among blacks [Volume Rate/Area] in Serum or Plasma by Creatinine-based formula (MDRD) Laboratory test result [facility] ([facility]) <content>CHRONIC KIDNEY DISEASE STAGING PER NKF</content>
<content></content>
<content>STAGE I & II GFR >= 60 NORMAL TO MILDLY DECREASED</content>
<content>STAGE III GFR 30-59 MODERATELY DECREASED</content>
<content>STAGE IV GFR 15-29 SEVERELY DECREASED</content>
<content>STAGE V GFR <15 VERY LITTLE GFR LEFT</content>
<content>ESRD GFR <15 ON EXPANSION JOINT FINISHER</content>
<content></content> ID Date Data Source [id number] 02/07/2021 03:44:00 PM EDT [facility] ([facility]) Name Value Range Interpretation Code Description Data Mariia rce(s) Supporting Document(s) Hemoglobin A1c/Hemoglobin.total in Blood Laboratory test result [facility] ([facility]) ID Date Data Source [id number] 11/11/2020 09:04:00 AM EDT [facility] ([facility]) Name Value Range Interpretation Code Description Data Mariia rce(s) Supporting Document(s) Microalbumin Urine 7.5 mg/L 1.3-20.0 [facility] ([facility]) Urine Creatinine 113.7 mg/dL 30.0-125.0 [facility] Microalb/Creat Ratio 6.6 ug/mg 0.0-30.0 [facility] ( [facility] ID Date Data Source [id number] 11/11/2020 09:04:00 AM EDT [facility] ([facility]) Name Value Range Interpretation Code Description Data Mariia rce(s) Supporting Document(s) Thyrotropin [Units/volume] in Serum or Plasma by Detec tion limit <= 0.05 mIU/L 1.15 uIU/mL 0.36-3.74 [facility] ([facility] ) ID Date Data Source [id number] 11/11/2020 09:04:00 AM EDT [facility] ([facility]) Name Value Range Interpretation Code Description Data Mariia rce(s) Supporting Document(s) Cholesterol [Mass/volume] in Serum or Plasma 204 mg/dL 131-200 [facility] ([facility]) Triglyceride [Mass/volume] in Serum or Plasma 207 mg/dL 30-150 [facility] ([facility]) Cholesterol in LDL [Mass/volume] in Serum or Plasma by calcu lation 90 CALC 50-159 [facility] ([facility]) Cholesterol in HDL [Mass/volume] in Serum or Plasma 73 mg/dL 35-60 [facility] ([facility]) ID Date Data Source [id number] 11/11/2020 09:04:00 AM EDT [facility] ([facility]) Name Value Range Interpretation Code Description Data Mariia rce(s) Supporting Document(s) Glucose [Mass/volume] in Serum or Plasma 124 mg/dL 74-99 [facility] ([facility]) 100-125 mg/dL PRE-DIABETES/FASTING >126 mg/dL DIABETES/FASTING Urea nitrogen [Mass/volume] in Serum or Plasma 9 mg/dL 7-18 [facility] ([facility]) Creatinine 0.7 mg/dL 0.6-1.3 [facility] ([facility]) Sodium [Moles/volume] in Serum or Plasma 140 meq/L 136-145 [facility] ([facility]) Potassium [Moles/volume] in Serum or Plasma 4.1 meq/L 3.5-5.1 [facility] Chloride [Moles/volume] in Serum or Plasma 103 meq/L 98-107 [facility] ([facility]) Carbon dioxide, total [Moles/volume] in Serum or Plasma 25 meq/L 21 -32 [facility] ([facility]) Calcium [Mass/volume] in Serum or Plasma 9.0 mg/dL 8.5-10.1 [facility] Total Bilirubin 0.5 mg/dL 0.2-1.0 [facility] ([facility] Alkaline phosphatase isoenzyme [Units/volume] in Serum or Pl asma 71 mg/dL 46-116 [facility] ([facility]) Aspartate aminotransferase [Enzymatic activity/volume] in Serum or Plasma 13 U/L 15-37 [facility] ([facility] ) Alanine aminotransferase [Enzymatic activity/volume] in Seru m or Plasma 16 U/L 12-78 [facility] ([facility]) Albumin [Mass/volume] in Serum or Plasma 4.0 g/dL 3.4-5.0 [facility] ([facility]) Proteinase 3 Ab [Units/volume] in Serum 7.6 g/dL 6.4-8.2 [facility] ([facility]) Glomerular filtration rate/1.73 sq M pre dicted among non-blacks [Volume Rate/Area] in Serum or Plasma by Creatinine-based formula (MDRD) Laboratory test result [facility] ([facility] ) A/G Ratio 1.11 CALC 1.00-1.90 [facility] Glomerular filtration rate/1.73 sq M pre dicted among blacks [Volume Rate/Area] in Serum or Plasma by Creatinine-based formula (MDRD) Laboratory test result [facility] ([facility] <content>CHRONIC KIDNEY DISEASE STAGING PER NKF</content>
<content></content>
<content>STAGE I & II GFR >= 60 NORMAL TO MILDLY DECREASED</content>
<content>STAGE III GFR 30-59 MODERATELY DECREASED</content>
<content>STAGE IV GFR 15-29 SEVERELY DECREASED</content>
<content>STAGE V GFR <15 VERY LITTLE GFR LEFT</content>
<content>ESRD GFR <15 ON EXPANSION JOINT FINISHER</content>
<content></content> ID Date Data Source [id number] 11/11/2020 09:04:00 AM EDT [facility] Name Value Range Interpretation Code Description Data Mariia rce(s) Supporting Document(s) Hemoglobin A1c/Hemoglobin.total in Blood 7.2 % [facility] ([facility]) Lab Result Notes: Pre-Diabetes 5.7 - 6.4 % Diabetes = or > 6.5% Glucose mean value [Mass/volume] in Blood Estimated fr om glycated hemoglobin 160 mg/dL 60-110 [facility] ([facility] ID Date Data Source [id number] 11/11/2020 09:04:00 AM EDT [facility] Name Value Range Interpretation Code Description Data Mariia rce(s) Supporting Document(s) Leukocytes [#/volume] in Blood by Automated count 9.4 x10*3/UL 4.1-10 .9 [facility] ([facility] Hemoglobin [Mass/volume] in Blood 12.9 g/dL 12.0-18.0 [facility] ([facility] Erythrocytes [#/volume] in Blood by Automated count 4.74 x10*6/UL 4.2 0-6.30 [facility] ([facility] Hematocrit [Volume Fraction] of Blood by Automated count 39.4 % 3 7.0-51.0 [facility] ([facility] MCH 27.3 pg 26.0-32.0 [facility] [facility] MCV 83.0 fL 80.0-97.0 [facility] ([facility]) Erythrocyte distribution width [Ratio] by Automated count 13.7 % 11.6-13.7 [facility] ([facility] MCHC 32.8 g/dL 31.0-38.0 [facility] [facility] MPV 7.9 FL 7.8-11.0 [facility] ([facility]) Platelets [#/volume] in Blood by Automated count 346 x10*3/UL 140-440 [facility] ([facility]) Lymph % 28.8 % 10.0-58.5 [facility] [facility] Mid % 6.1 % 1.7-9.3 [facility] ([facility]) Neut % 65.1 % 37.0-92.0 [facility] ([facility]) Lymph # 2.7 x10*3/UL 0.6-4.1 [facility] ([facility]) Mid # 0.6 x10*3/UL 0.1-0.6 [facility] ([facility]) Neut # 6.1 x10*3/UL 2.0-7.8 [facility] ([facility]) ID Date Data Source [id number] 11/11/2020 09:04:00 AM EDT [facility] ([facility]) Name Value Range Interpretation Code Description Data Mariia rce(s) Supporting Document(s) Hemoglobin A1c/Hemoglobin.total in Blood Laboratory test result [facility] ([facility]) ID Date Data Source [id number] 09/22/2020 12:00:00 AM EST [facility] Flower Ochoa DO Patient Name: ERIN GARCIA [id number] [facility] Date [facility] : 1970[facility] [address] Date of Exam: 09/22/2020EDGAR Sheehan [id number]#: Fax: [phone] EXAM: MAMMO SCREENING WITH CADCLINICAL INFORMATION: Screening.Digital screening (2D) mammography was performed bilaterally in the CC andMLO projections. Additionally, breast tomosynthesis (3D mammography) wasperformed bilaterally in the CC and MLO projections.Comparison 12/05/2018, 11/09/2017.[facility] volumetric breast density category is C, the breasts areheterogeneously dense which may obscure small masses.She has no current complaint, personal or family history of breast cancer.FINDINGS:There are dense heterogeneous parenchymal elements in a symmetric patternthroughout the breasts which may limit the sensitivity of the mammography.This is all unchanged. Scattered small benign appearing calcifications arepresent of doubtful clinical significance. Scattered lymph nodes are seenin the axilla. No dominant masses, suspicious cluster ofmicrocalcifications or secondary signs of malignancy are seen.The 3D tomosynthesis images show no additional findings.IMPRESSION:BI-RADS Category 2 - Benign Finding(s). Stable mammogram. There is noevidence of malignant alteration of the breasts. Followup examinationrecommended in one year.This mammogram was read with the assistance of Addison KIM, an FDAapproved computer aided detection system for mammography.Negative x-ray reports should not delay surgical consultation if a dominantor clinically suspicious mass is present.Not all breast cancers can be identified by mammography. Therefore, werecommend that you continue to perform regular breast self-examination andphysical examination and then promptly contact your physician of anyconcerns or changes.Adenosis and dense breasts may obscure an underlying neoplasm.The patient states that the last clinical breast exam was inn 09/2020.Based on the personal and family history information your patient suppliedat the time of imaging, her lifetime risk of breast cancer estimated by theTyrer-Cuzick model is 13.9%. Given that this patient has less than 20% TCrisk score, no further medical management is currently recommended at thistime.ARJUN Guzman/Isma you for referring ERIN GARCIA to our office. Electronically Signed - KATHIE TRAVIS MD 09/23/20 12:38 Name Value Range Interpretation Code Description Data Mariia rce(s) Supporting Document(s) Procedure Social History No Information Vital Signs ID Date Data Source UNK Name Value Range Interpretation Code Description Data Source(s) Body height 63.50 [in_i] 63.50 [in_i] [facility] 5'3.50" Body weight 163.00 [lb_av] 163.00 [lb_av] [facility] ([facility]) Body mass index (BMI) [Ratio] 28.4 kg/m2 28.4 k g/m2 [facility] ([facility]) Systolic blood pressure 122 mm[Hg] 122 mm[Hg] [facility] ([facility]) Diastolic blood pressure 76 mm[Hg] 76 mm[Hg] [facility] ([facility]) Heart rate 86 /min 86 /min [facility] ([facility]) Diastolic blood pressure 70 mm[Hg] 70 mm[Hg] [facility] ([facility]) Systolic blood pressure 130 mm[Hg] 130 mm[Hg] [facility] ([facility]) Body height 63.50 [in_i] 63.50 [in_i] [facility] ([facility]) 5'3.50" Body weight 165.00 [lb_av] 165.00 [lb_av] [facility] ([facility]) Body mass index (BMI) [Ratio] 28.8 kg/m2 28.8 k g/m2 [facility] ([facility]) Systolic blood pressure 116 mm[Hg] 116 mm[Hg] [facility] rt arm Diastolic blood pressure 70 mm[Hg] 70 mm[Hg] [facility] ([facility]) rt arm Systolic blood pressure 126 mm[Hg] 126 mm[Hg] [facility] left arm Diastolic blood pressure 78 mm[Hg] 78 mm[Hg] [facility] ([facility]) left arm Heart rate 96 /min 96 /min [facility] Body height 63.50 [in_i] 63.50 [in_i] [facility] ([facility]) 5'3.50" Body weight 166.00 [lb_av] 166.00 [lb_av] [facility] T ([facility]) Oxygen saturation in Arterial blood by Pulse oximetry 98 % 98 % [facility] RM Air Body mass index (BMI) [Ratio] 28.9 kg/m2 28.9 k g/m2 [facility]) Systolic blood pressure 122 mm[Hg] 122 mm[Hg] [facility] Diastolic blood pressure 76 mm[Hg] 76 mm[Hg] [facility] Heart rate 85 /min 85 /min [facility] Body height 63.50 [in_i] 63.50 [in_i] [facility] ([facility]) 5'3.50" Body weight 160.00 [lb_av] 160.00 [lb_av] [facility] ([facility]) Oxygen saturation in Arterial blood by Pulse oximetry 98 % 98 % [facility] RM Air Body mass index (BMI) [Ratio] 27.9 kg/m2 27.9 k g/m2 [facility] ([facility])
--- NOTE | 2021-06-22 11:26 | REP ---
INDICATION: CHEST PAIN COMPARISON: 11/04/2020 TECHNIQUE: Portable AP view of the chest FINDINGS: The mediastinum and cardiac silhouette are stable and within normal limits for portable technique. The lung delgado are clear without acute consolidation, effusion, or pneumothorax. Skeletal structures are intact. IMPRESSION: No acute cardiopulmonary process appreciated. <Electronically signed by Tushar Easley > 06/22/21 [id number]
--- OUTSIDE RECORDS SUMMARY | 2021-06-22 11:47 | CCD ---
Author Author [facility] Organization [facility] Address Unknown Phone Unavailable Care Team Providers Care Solution Consultant Name Role Phone Gabriela, Flower DO Unavailable Unavailable Gabriela, Flower DO Unavailable Unavailable Gabriela, Flower DO Unavailable Unavailable Gabriela, Flower DO Unavailable Unavailable Gabriela, Flower DO Unavailable Unavailable Gabriela, Flower DO Unavailable Unavailable Gabriela, Flower DO Unavailable Unavailable Agbriela, Flower DO Unavailable Unavailable Gabriela, Flower DO [...] is protected by Article 27-F of the [facility] Public Health law. If you continue you may have access to information: Regarding HIV / AIDS; Provided by facilities licensed or operated by the [facility] Office of Mental Health; or Provided by the [facility] Office for People With Developmental Disabilities. If such information is present, then the following [facility] mandated warning applies: This information has [...] law may result in a fine or shelter sentence or both. A general authorization for the release of medical or other information is NOT sufficient authorization for further disc losure. Family History Family Member Name Family Member Gender Family Member Status Date o f Status Description Data Source(s) Unknown Unknown Problem [facility] ([facility]) Unknown Male Problem [facility] ([facility]) at age 55 Encounters Encounter Providers Location Date Indications Data Source(s ) Outpatient Attender: Flower Bal 02/07 03:30:00 PM EDT [facility] ([facility] ) Outpatient Attender: Flower Bal 12/06 03:30:00 PM EDT [facility] ([facility] ) Outpatient Attender: Flower Bal 11/07 02:45:00 PM EDT [facility] ([facility] ) Outpatient Attender: Flower Bal 09/06 02:15:00 PM EST [facility] ([facility] ) Medications Medication Brand Name Start Date Product Form Dose Route Admi nistrative Instructions Pharmacy Instructions Status Indications Reaction Description Data Source(s) Naproxen 500 MG Oral Tablet Naproxen 12/06/2020 12:00:00 AM EDT ORAL active [facility] ([facility]) Glucosamine Chondroitin 1500 Complex Maximum Strength 11/07/2020 12:00:00 AM EDT ORAL active [facility] ([facility]) Insurance Providers Payer name Policy type / Coverage type Policy ID Covered republican ID Covered republican's relationship to post Policy Post Plan Information [employer] FEDERAL [employer]PLOYEE PROGRAM [id number] SP [id number] [facility] [id number] SP [id number] [place] [facility] B [id number] S [id number] UMR O [id number] S [id number] Umr Commercial [id number] Self [id number] Umr Commercial [id number] Self [id number] Umr Commercial [id number] Self [id number] Umr Commercial [id number] 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 [id number] S [id number] SELF PAY O UNAVAILABLE S UNAVAILA BLE Problems, Conditions, and Diagnoses No Information Surgeries/Procedures Procedure Description Date Indications Data Source(s) OFFICE OUTPATIENT VISIT 25 MINUTES 02/07/2021 12:00:00 AM EDT [facility] ([facility]) Diabetic Retinal Eye Exam 01/26/2021 12:00:00 AM EDT [facility] ([facility]) OFFICE OUTPATIENT VISIT 25 MINUTES 12/06/2020 12:00:00 AM EDT [facility] ([facility]) OFFICE OUTPATIENT VISIT 25 MINUTES 11/07/2020 12:00:00 AM EDT [facility] ([facility]) Mammogram 09/22/2020 12:00:00 AM EST M EDENT ([facility]) PERIODIC PREVENTIVE MED EST PATIENT 40-64YRS 12:00:00 AM EST [facility] ([facility]) Results ID Date Data Source [id number] 02/07/2021 03:44:00 PM EDT [facility] ([facility]) Name Value Range Interpretation Code Description Data Mariia rce(s) Supporting Document(s) Hemoglobin A1c/Hemoglobin.total in Blood 7.8 % [facility] ([facility]) Lab Result Notes: Pre-Diabetes 5.7 - 6.4 % Diabetes = or > 6.5% Glucose mean value [Mass/volume] in Blood Estimated fr om glycated hemoglobin 177 mg/dL 60-110 [facility] ([facility] ) ID Date Data Source [id number] 02/07/2021 03:44:00 PM EDT [facility] ([facility]) Name Value Range Interpretation Code Description Data Mariia rce(s) Supporting Document(s) Glucose [Mass/volume] in Serum or Plasma 243 mg/dL 74-99 [facility] ([facility]) 100-125 mg/dL PRE-DIABETES/FASTING >126 mg/dL DIABETES/FASTING Urea nitrogen [Mass/volume] in Serum or Plasma 10 mg/dL 7-18 [facility] ([facility]) Creatinine 0.7 mg/dL 0.6-1.3 [facility] Potassium [Moles/volume] in Serum or Plasma 3.5 meq/L 3.5-5.1 [facility] ([facility]) Sodium [Moles/volume] in Serum or Plasma 138 meq/L 136-145 [facility] ([facility]) Carbon dioxide, total [Moles/volume] in Serum or Plasma 31 meq/L 21 -32 [facility] ([facility]) Chloride [Moles/volume] in Serum or Plasma 100 meq/L 98-107 [facility] ([facility]) Calcium [Mass/volume] in Serum or Plasma 9.1 mg/dL 8.5-10.1 [facility] Glomerular filtration rate/1.73 sq M pre dicted among non-blacks [Volume Rate/Area] in Serum or Plasma by Creatinine-based formula (MDRD) Laboratory test result [facility] Glomerular filtration rate/1.73 sq M pre dicted among blacks [Volume Rate/Area] in Serum or Plasma by Creatinine-based formula (MDRD) Laboratory test result [facility] <content>CHRONIC KIDNEY DISEASE STAGING PER NKF</content>
<content></content>
<content>STAGE I & II GFR >= 60 NORMAL TO MILDLY DECREASED</content>
<content>STAGE III GFR 30-59 MODERATELY DECREASED</content>
<content>STAGE IV GFR 15-29 SEVERELY DECREASED</content>
<content>STAGE V GFR <15 VERY LITTLE GFR LEFT</content>
<content>ESRD GFR <15 ON CIA AGENT</content>
<content></content> ID Date Data Source [id number] 02/07/2021 03:44:00 PM EDT [facility] ([facility]) Name Value Range Interpretation Code Description Data Mariia rce(s) Supporting Document(s) Hemoglobin A1c/Hemoglobin.total in Blood Laboratory test result [facility]) ID Date Data Source [id number] 11/11/2020 09:04:00 AM EDT [facility] ([facility]) Name Value Range Interpretation Code Description Data Mariia rce(s) Supporting Document(s) Microalbumin Urine 7.5 mg/L 1.3-20.0 [facility] ([facility]) Urine Creatinine 113.7 mg/dL 30.0-125.0 [facility] Microalb/Creat Ratio 6.6 ug/mg 0.0-30.0 [facility] ID Date Data Source [id number] 11/11/2020 09:04:00 AM EDT [facility] ([facility]) Name Value Range Interpretation Code Description Data Mariia rce(s) Supporting Document(s) Thyrotropin [Units/volume] in Serum or Plasma by Detec tion limit <= 0.05 mIU/L 1.15 uIU/mL 0.36-3.74 [facility] ([facility] ) ID Date Data Source [id number] 11/11/2020 09:04:00 AM EDT [facility] ([facility]) Name Value Range Interpretation Code Description Data Mariia rce(s) Supporting Document(s) Cholesterol [Mass/volume] in Serum or Plasma 204 mg/dL 131-200 [facility] ([facility]) Triglyceride [Mass/volume] in Serum or Plasma 207 mg/dL 30-150 [facility] ([facility]) Cholesterol in LDL [Mass/volume] in Serum or Plasma by calcu lation 90 CALC 50-159 [facility] ([facility]) Cholesterol in HDL [Mass/volume] in Serum or Plasma 73 mg/dL 35-60 [facility] ([facility]) ID Date Data Source [id number] 11/11/2020 09:04:00 AM EDT [facility] ([facility]) Name Value Range Interpretation Code Description Data Mariia rce(s) Supporting Document(s) Glucose [Mass/volume] in Serum or Plasma 124 mg/dL 74-99 [facility] ([facility]) 100-125 mg/dL PRE-DIABETES/FASTING >126 mg/dL DIABETES/FASTING Urea nitrogen [Mass/volume] in Serum or Plasma 9 mg/dL 7-18 [facility] ([facility]) Creatinine 0.7 mg/dL 0.6-1.3 [facility] ([facility]) Sodium [Moles/volume] in Serum or Plasma 140 meq/L 136-145 [facility] ([facility]) Potassium [Moles/volume] in Serum or Plasma 4.1 meq/L 3.5-5.1 [facility] Chloride [Moles/volume] in Serum or Plasma 103 meq/L 98-107 [facility] ([facility]) Carbon dioxide, total [Moles/volume] in Serum or Plasma 25 meq/L 21 -32 [facility] ([facility]) Calcium [Mass/volume] in Serum or Plasma 9.0 mg/dL 8.5-10.1 [facility] Total Bilirubin 0.5 mg/dL 0.2-1.0 [facility] ([facility] Alkaline phosphatase isoenzyme [Units/volume] in Serum or Pl asma 71 mg/dL 46-116 [facility] ([facility]) Aspartate aminotransferase [Enzymatic activity/volume] in Serum or Plasma 13 U/L 15-37 [facility] ([facility] ) Alanine aminotransferase [Enzymatic activity/volume] in Seru m or Plasma 16 U/L 12-78 [facility] ([facility]) Albumin [Mass/volume] in Serum or Plasma 4.0 g/dL 3.4-5.0 [facility] ([facility]) Proteinase 3 Ab [Units/volume] in Serum 7.6 g/dL 6.4-8.2 [facility] ([facility]) Glomerular filtration rate/1.73 sq M pre dicted among non-blacks [Volume Rate/Area] in Serum or Plasma by Creatinine-based formula (MDRD) Laboratory test result [facility] ([facility] ) A/G Ratio 1.11 CALC 1.00-1.90 [facility] Glomerular filtration rate/1.73 sq M pre dicted among blacks [Volume Rate/Area] in Serum or Plasma by Creatinine-based formula (MDRD) Laboratory test result [facility] <content>CHRONIC KIDNEY DISEASE STAGING PER NKF</content>
<content></content>
<content>STAGE I & II GFR >= 60 NORMAL TO MILDLY DECREASED</content>
<content>STAGE III GFR 30-59 MODERATELY DECREASED</content>
<content>STAGE IV GFR 15-29 SEVERELY DECREASED</content>
<content>STAGE V GFR <15 VERY LITTLE GFR LEFT</content>
<content>ESRD GFR <15 ON [employer] AGENT</content>
<content></content> ID Date Data Source [id number] 11/11/2020 09:04:00 AM EDT [facility] Name Value Range Interpretation Code Description Data Mariia rce(s) Supporting Document(s) Hemoglobin A1c/Hemoglobin.total in Blood 7.2 % [facility] ([facility]) Lab Result Notes: Pre-Diabetes 5.7 - 6.4 % Diabetes = or > 6.5% Glucose mean value [Mass/volume] in Blood Estimated fr om glycated hemoglobin 160 mg/dL 60-110 [facility] ID Date Data Source [id number] 11/11/2020 09:04:00 AM EDT [facility] Name Value Range Interpretation Code Description Data Mariia rce(s) Supporting Document(s) Leukocytes [#/volume] in Blood by Automated count 9.4 x10*3/UL 4.1-10 .9 [facility] ([facility] Hemoglobin [Mass/volume] in Blood 12.9 g/dL 12.0-18.0 [facility] Erythrocytes [#/volume] in Blood by Automated count 4.74 x10*6/UL 4.2 0-6.30 [facility] ([facility] Hematocrit [Volume Fraction] of Blood by Automated count 39.4 % 3 7.0-51.0 [facility] ([facility] MCH 27.3 pg 26.0-32.0 [facility] MCV 83.0 fL 80.0-97.0 [facility] ([facility]) Erythrocyte distribution width [Ratio] by Automated count 13.7 % 11.6-13.7 [facility] MCHC 32.8 g/dL 31.0-38.0 [facility] MPV 7.9 FL 7.8-11.0 [facility] ([facility]) Platelets [#/volume] in Blood by Automated count 346 x10*3/UL 140-440 [facility] ([facility]) Lymph % 28.8 % 10.0-58.5 [facility] Mid % 6.1 % 1.7-9.3 [facility] ([facility]) Neut % 65.1 % 37.0-92.0 [facility] ([facility]) Lymph # 2.7 x10*3/UL 0.6-4.1 [facility] ([facility]) Mid # 0.6 x10*3/UL 0.1-0.6 [facility] ([facility]) Neut # 6.1 x10*3/UL 2.0-7.8 [facility] ([facility]) ID Date Data Source [id number] 11/11/2020 09:04:00 AM EDT [facility] ([facility]) Name Value Range Interpretation Code Description Data Mariia rce(s) Supporting Document(s) Hemoglobin A1c/Hemoglobin.total in Blood Laboratory test result [facility] ([facility]) ID Date Data Source [id number] 09/22/2020 12:00:00 AM EST [facility] Flower Ochoa DO Patient Name: ERIN GARCIA [id number] [facility] Date [facility] : 1970[facility] Date of Exam: 09/22/2020EDGAR Sheehan [id number]#: Fax: [phone] EXAM: MAMMO SCREENING WITH CADCLINICAL INFORMATION: Screening.Digital screening (2D) mammography was performed bilaterally in the CC andMLO projections. Additionally, breast tomosynthesis (3D mammography) wasperformed bilaterally in the CC and MLO projections.Comparison 12/05/2018, 11/09/2017.[facility] volumetric breast density category is [...] Source(s) Body height 63.50 [in_i] 63.50 [in_i] [facility] 5'3.50" Body weight 163.00 [lb_av] 163.00 [lb_av] [facility] T ([facility]) Body mass index (BMI) [Ratio] 28.4 kg/m2 28.4 k g/m2 [facility] ([facility]) Systolic blood pressure 122 mm[Hg] 122 mm[Hg] [facility] ([facility]) Diastolic blood pressure 76 mm[Hg] 76 mm[Hg] [facility] ([facility]) Heart rate 86 /min 86 /min [facility] ([facility]) Diastolic blood pressure 70 mm[Hg] 70 mm[Hg] [facility] ([facility]) Systolic blood pressure 130 mm[Hg] 130 mm[Hg] [facility] ([facility]) Body height 63.50 [in_i] 63.50 [in_i] [facility] ([facility]) 5'3.50" Body weight 165.00 [lb_av] 165.00 [lb_av] [facility] T ([facility]) Body mass index (BMI) [Ratio] 28.8 kg/m2 28.8 k g/m2 [facility] ([facility]) Systolic blood pressure 116 mm[Hg] 116 mm[Hg] [facility] rt arm Diastolic blood pressure 70 mm[Hg] 70 mm[Hg] [facility] ([facility]) rt arm Systolic blood pressure 126 mm[Hg] 126 mm[Hg] [facility] left arm Diastolic blood pressure 78 mm[Hg] 78 mm[Hg] [facility] ([facility]) left arm Heart rate 96 /min 96 /min [facility] ([facility]) Body height 63.50 [in_i] 63.50 [in_i] [facility] ([facility]) 5'3.50" Body weight 166.00 [lb_av] 166.00 [lb_av] [facility] T ([facility]) Oxygen saturation in Arterial blood by Pulse oximetry 98 % 98 % [facility] RM Air Body mass index (BMI) [Ratio] 28.9 kg/m2 28.9 k g/m2 [facility] ([facility]) Body height 63.50 [in_i] 63.50 [in_i] [facility] ([facility]) 5'3.50" Body weight 160.00 [lb_av] 160.00 [lb_av] [facility] T ([facility]) Oxygen saturation in Arterial blood by Pulse oximetry 98 % 98 % [facility] RM Air Body mass index (BMI) [Ratio] 27.9 kg/m2 27.9 k g/m2 [facility] ([facility]) Diastolic blood pressure 76 mm[Hg] 76 mm[Hg] [facility] Heart rate 85 /min 85 /min [facility] Systolic blood pressure 122 mm[Hg] 122 mm[Hg] [facility])
[2021-06-22 12:12] LABS: BASO # 0.1 10^3/uL (0.0-0.2); BASO % 0.8 % (0.0-1.0); EOS # 0.2 10^3/uL (0.0-0.5); EOS % 2.6 % (0.0-3.0); HEMATOCRIT 43.1 % (36.0-47.0); HEMOGLOBIN 13.6 g/dl (12.0-15.5); LYMPH # 2.4 10^3/uL (1.5-5.0); LYMPH % 30.8 % (24.0-44.0); MEAN CORPUSCULAR HGB CONC 31.6 g/dl (32.0-36.5); MEAN CORPUSCULAR VOLUME 85.7 fl (80.0-96.0); MONO # 0.4 10^3/uL (0.0-0.8); MONO % 4.5 % (2.0-8.0); NEUTROPHILS # 4.8 10^3/uL (1.5-8.5); PLATELET COUNT, AUTOMATED 339 10^3/uL (150-450); RED BLOOD COUNT 5.03 10^6/uL (4.00-5.40); WHITE BLOOD COUNT 7.8 10^3/uL (4.0-10.0)
[2021-06-22] MEDS ORDERED: VALS40TA9 (12:15)
[2021-06-22] MEDS ORDERED: OMEP-221 (12:15)
[2021-06-22 12:52] LABS: ALBUMIN 4.1 GM/DL (3.2-5.2); ALT/SGPT 19 U/L (12-78); BILIRUBIN,DIRECT 0.1 MG/DL (0.0-0.2); BILIRUBIN,TOTAL 0.4 MG/DL (0.2-1.0); BLOOD UREA NITROGEN 9 MG/DL (7-18); CALCIUM LEVEL 9.5 MG/DL (8.5-10.1); CARBON DIOXIDE LEVEL 29 MEQ/L (21-32); CHLORIDE LEVEL 105 MEQ/L (98-107); CREATININE FOR GFR 0.57 MG/DL (0.55-1.30); GLOMERULAR FILTRATION RATE > 60.0 (>51); GLUCOSE, FASTING 115 MG/DL (70-100); LIPASE 174 U/L (73-393); NT-PRO BNP 20 PG/ML (<125); POTASSIUM SERUM 3.9 MEQ/L (3.5-5.1); SODIUM LEVEL 139 MEQ/L (136-145); THYROID STIMULATING HORMONE 0.588 uIU/ML (0.358-3.740); TOTAL PROTEIN 7.8 GM/DL (6.4-8.2)
[2021-06-22] MEDS ORDERED: ISOVUE-370 76% 100ML VIAL As Ordered ONE (13:45)
--- NOTE | 2021-06-22 15:33 | REP ---
INDICATION: CP COMPARISON: None. TECHNIQUE: Axial contrast enhanced images from the thoracic inlet to the upper abdomen using pulmonary embolus technique with multiplanar re-formations. 75 ml Isovue 370 intravenous contrast material administered without complication. This CT examination was performed using the following dose reduction techniques: Automated exposure control, adjustment of mA and/or kv according to the patient's size, and use of iterative reconstruction technique. FINDINGS: Satisfactory enhancement of the pulmonary vasculature is achieved and no filling defects are identified to suggest pulmonary embolus. Further evaluation of the mediastinum demonstrates normal thoracic aorta, heart and pericardium. The bilateral lung delgado demonstrate mild posterobasilar dependent changes without consolidation pleural effusion or pneumothorax. Tracheobronchial tree is patent. No nodule or mass lesion is identified. No adenopathy noted. Surrounding musculoskeletal structures intact IMPRESSION: No evidence for pulmonary embolus. No acute mediastinal or pleural parenchymal process. <Electronically signed by Tushar Easley > 06/22/21 [id number]
[2021-06-22 17:42] VITALS: BP 180/82
[2021-06-22 17:57] VITALS: BP 223/101
--- NOTE | 2021-06-24 07:54 | ECGEPIP ---
[facility] - ED Test Date: 2021-06-22 Pat Name: ERIN GARCIA Department: Room: - Gender: Female [employer] Shift Engineer: MARTINEZ : 1970 Requested By: Katerin Smith Order Number: [id number] Reading MD: Katerin Smith Measurements Intervals [place] Rate: 67 P: 36 ME: 140 QRS: 33 QRSD: 88 T: 46 QT: 418 QTc: 441 Interpretive Statements Normal sinus rhythm NSTTW abnormalities similar 11/04/20 Electronically Signed on 06-24-2021 7:54:15 EST by Katerin Smith
--- NOTE | 2021-06-24 08:00 | ECGEPIP ---
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
== END 2021-06-22 18:35 | disposition home or self-care (01) ==
LOC: M ED 10:57
DX: I10 Essential (primary) hypertension (principal); E11.9 Type 2 diabetes mellitus without complications; Z79.899 Other long term (current) drug therapy; Z79.82 Long term (current) use of aspirin; Z79.84 Long term (current) use of oral hypoglycemic drugs; Z88.8 Allergy status to other drugs, medicaments and biological substances
CPT/HCPCS: 36415; 71045; 71275; 80048; 80076; 83690; 83880; 84443; 84484; 85025; 93005; 93041; 94760; 99285; Q9967

== ENCOUNTER → 2021-07-11 | Outpatient (REF) | payer BC ==
[~2021-07-11] MED LIST changes: +OMEP-221; +VALS40TA9
== END ==
LOC: M LAB REF 12:23
PROVIDERS: ATTEND Internal Medicine
DX: G60.9 Hereditary and idiopathic neuropathy, unspecified (principal)

== ENCOUNTER → 2021-07-27 | Outpatient (REF) | payer BC | LOC: M LAB REF 16:15 | PROVIDERS: ATTEND Internal Medicine | DX: R10.13 Epigastric pain (principal) ==

== ENCOUNTER → 2021-09-19 | Outpatient (CLI) | payer BC ==
[~2021-09-19] MED LIST changes: +GASTROGRAFIN SOLUTION 30ML (Q9963) As Ordered ONE; +ISOVUE-370 76% 100ML VIAL As Ordered ONE; -OMEP-221; +OMEP40CA5
== END ==
LOC: M RAD 10:43
PROVIDERS: ATTEND Internal Medicine
DX: R10.32 Left lower quadrant pain (principal)
CPT/HCPCS: 74178; Q9963; Q9967

== ENCOUNTER → 2021-09-21 | Outpatient (REF) | payer BC ==
[~2021-09-21] MED LIST changes: -GASTROGRAFIN SOLUTION 30ML (Q9963) As Ordered ONE; -ISOVUE-370 76% 100ML VIAL As Ordered ONE
== END ==
LOC: M LAB REF 12:16
PROVIDERS: ATTEND Internal Medicine
DX: R19.7 Diarrhea, unspecified (principal)

== ENCOUNTER → 2022-01-30 | Outpatient (REF) | payer BC ==
[2022-01-30 13:24] LABS: PERCENT SATURATION 18.9 % (13.2-45.0)
== END ==
LOC: M LAB REF 12:09
PROVIDERS: ATTEND Internal Medicine
DX: R10.13 Epigastric pain (principal); K58.0 Irritable bowel syndrome with diarrhea

== ENCOUNTER → 2022-02-02 | Outpatient (REF) | payer BC | LOC: M LAB REF 08:20 | PROVIDERS: ATTEND Internal Medicine | DX: R19.7 Diarrhea, unspecified (principal) ==

== ENCOUNTER → 2022-02-07 | Outpatient (CLI) | payer BC ==
[~2022-02-07] MED LIST changes: +METHACHOLINE KIT (J7674) INH ONE
== END ==
LOC: M CARPUL 09:34
PROVIDERS: ATTEND Internal Medicine
DX: R05.9 Cough, unspecified (principal)
CPT/HCPCS: 94070; J7674

== ENCOUNTER → 2022-03-27 | Outpatient (CLI) | payer BC ==
[~2022-03-27] MED LIST changes: -METHACHOLINE KIT (J7674) INH ONE
== END ==
LOC: M RAD 08:51
PROVIDERS: ATTEND Internal Medicine Gastroenterology
DX: K76.0 Fatty (change of) liver, not elsewhere classified (principal); K80.20 Calculus of gallbladder without cholecystitis without obstruction

== ENCOUNTER 2022-04-06 15:08 | Emergency (ER) | payer BC ==
[~2022-04-06] VITALS: Ht 162.6 cm; Wt 70.2 kg
[~2022-04-06 15:08] MED LIST changes: +AMLO1TAB24; +CARV6.25; +DICY20TA20; +JARD1TAB3; +VALS1TAB66; +VITMTA PO
[2022-04-06 17:06] LABS: BASO % 0.3 % (0.0-1.0); EOS # 0.3 10^3/uL (0.0-0.5); EOS % 1.8 % (0.0-3.0); HEMATOCRIT 41.7 % (36.0-47.0); HEMOGLOBIN 13.5 g/dl (12.0-15.5); LYMPH # 2.5 10^3/uL (1.5-5.0); LYMPH % 17.2 % (24.0-44.0); MEAN CORPUSCULAR HEMOGLOBIN 28.1 pg (27.0-33.0); MEAN CORPUSCULAR HGB CONC 32.4 g/dl (32.0-36.5); MEAN CORPUSCULAR VOLUME 86.9 fl (80.0-96.0); MONO # 1.1 10^3/uL (0.0-0.8); MONO % 7.4 % (2.0-8.0); NEUTROPHILS # 10.7 10^3/uL (1.5-8.5); NEUTROPHILS % 72.9 % (36.0-66.0); PLATELET COUNT, AUTOMATED 266 10^3/uL (150-450); WHITE BLOOD COUNT 14.7 10^3/uL (4.0-10.0)
[2022-04-06] MEDS ORDERED: NS 500 ML IV ONE (17:35)
[2022-04-06] MEDS ORDERED: ONDANSETRON 4MG 2ML VIAL IV ONE (17:35)
[2022-04-06] MEDS ORDERED: MORPHINE 2 MG/ML 1ML VIAL IV ONE (17:35)
[2022-04-06 17:43] LABS: ALBUMIN 3.5 GM/DL (3.2-5.2); ALT/SGPT 64 U/L (12-78); BILIRUBIN,DIRECT < 0.1 MG/DL (0.0-0.2); BILIRUBIN,TOTAL 0.4 MG/DL (0.2-1.0); BLOOD UREA NITROGEN 13 MG/DL (7-18); CALCIUM LEVEL 9.2 MG/DL (8.5-10.1); CARBON DIOXIDE LEVEL 28 MEQ/L (21-32); CHLORIDE LEVEL 106 MEQ/L (98-107); CREATININE FOR GFR 0.53 MG/DL (0.55-1.30); GLOMERULAR FILTRATION RATE > 60.0 (>51); GLUCOSE, FASTING 136 MG/DL (70-100); LIPASE 180 U/L (73-393); POTASSIUM SERUM 5.1 MEQ/L (3.5-5.1); SODIUM LEVEL 139 MEQ/L (136-145); TOTAL PROTEIN 7.8 GM/DL (6.4-8.2)
[2022-04-06] MEDS ORDERED: ISOVUE-370 76% 100ML VIAL As Ordered ONE (17:56)
[2022-04-06] MEDS ORDERED: MEDR4PAK PO ×2 (19:32→20:11)
[2022-04-06] MEDS ORDERED: methylPREDNISolone 125MG 2ML VIAL IV ONE (19:35)
[2022-04-06 19:39] VITALS: BP 187/80
[2022-04-06] MEDS ORDERED: METR-265 PO ×2 (19:40→20:11)
[2022-04-06] MEDS ORDERED: CIPROFLOXACIN 500MG TABLET PO ONE (19:40)
[2022-04-06] MEDS ORDERED: metroNIDAZOLE (FLAGYL) 500MG TABLET PO ONE (19:40)
[2022-04-06] MEDS ORDERED: CIPR-249 PO ×2 (19:40→20:11)
[2022-04-06] MEDS ORDERED: ACETAMINOPHEN 325 MG TAB PO ONE (19:40)
[2022-04-06 20:21] LABS: ERYTHROCYTE SEDIMENTATION RATE 17 mm/hr (0-30)
== END 2022-04-06 20:14 | disposition home or self-care (01) ==
LOC: M ED 15:08
DX: K56.7 Ileus, unspecified (principal); K80.20 Calculus of gallbladder without cholecystitis without obstruction; I10 Essential (primary) hypertension; E11.9 Type 2 diabetes mellitus without complications; Z88.8 Allergy status to other drugs, medicaments and biological substances; Z79.899 Other long term (current) drug therapy; Z79.84 Long term (current) use of oral hypoglycemic drugs
CPT/HCPCS: 74177; 76705; 80048; 80076; 83690; 85025; 85652; 86140; 93041; 96374; 96375; 99284; J2270; J2405; J2930; Q9967

== ENCOUNTER → 2022-04-11 | Outpatient (CLI) | payer BC ==
[~2022-04-11] MED LIST changes: +CIPR-249 PO; +MEDR4PAK PO; +METR-265 PO
== END ==
LOC: M LABSMTC 09:49
PROVIDERS: ATTEND Anesthesiology
DX: Z01.812 Encounter for preprocedural laboratory examination (principal); Z11.52 Encounter for screening for COVID-19

== ENCOUNTER 2022-04-13 08:14 | Day surgery (SDC) | payer BC ==
[~2022-04-13] VITALS: Ht 162.6 cm; Wt 65.8 kg
[~2022-04-13 08:14] MED LIST changes: +NS 1,000 ML IV ONE
[2022-04-13] MEDS ORDERED: propofoL 200 MG/20 ML VIAL As Ordered ONE ×2 (09:32→10:45)
[2022-04-13] MEDS ORDERED: LIDOCAINE 2% 100MG/5ML SDV (FOR ANES.) As Ordered ONE (09:34)
[2022-04-13 11:47] VITALS: BP 159/69
== END 2022-04-13 11:49 | disposition home or self-care (01) ==
LOC: M OPP 08:14
PROVIDERS: ATTEND Internal Medicine Gastroenterology
DX: K64.9 Unspecified hemorrhoids (principal); R93.3 Abnormal findings on diagnostic imaging of other parts of digestive tract; K29.70 Gastritis, unspecified, without bleeding; K20.90 Esophagitis, unspecified without bleeding; I10 Essential (primary) hypertension; E78.00 Pure hypercholesterolemia, unspecified; E11.9 Type 2 diabetes mellitus without complications; Z79.2 Long term (current) use of antibiotics; Z79.84 Long term (current) use of oral hypoglycemic drugs; Z79.899 Other long term (current) drug therapy

== ENCOUNTER → 2022-06-21 | Outpatient (CLI) | payer BC ==
[~2022-06-21] MED LIST changes: -NS 1,000 ML IV ONE
== END ==
LOC: M RAD 08:55
PROVIDERS: ATTEND Internal Medicine
DX: K80.80 Other cholelithiasis without obstruction (principal)
CPT/HCPCS: 78226; A9537

== ENCOUNTER → 2022-07-04 | Outpatient (REF) | payer BC | LOC: M LAB REF 16:32 | PROVIDERS: ATTEND Internal Medicine | DX: K58.0 Irritable bowel syndrome with diarrhea (principal) ==

== ENCOUNTER → 2022-07-06 | Outpatient (CLI) | payer BC | LOC: M WUC 08:08 | PROVIDERS: ATTEND Internal Medicine | DX: R05.9 Cough, unspecified (principal); R68.83 Chills (without fever) ==

== ENCOUNTER → 2022-10-31 | Outpatient (REF) | payer BC | LOC: M SFHCWAGY 10:09 | PROVIDERS: ATTEND Nurse Practitioner Family | DX: Z12.4 Encounter for screening for malignant neoplasm of cervix (principal) | CPT/HCPCS: 87624; G0123 ==

== ENCOUNTER → 2022-11-13 | Outpatient (CLI) | payer BC | LOC: M WHC 15:24 | PROVIDERS: ATTEND Nurse Practitioner Family | DX: Z12.31 Encounter for screening mammogram for malignant neoplasm of breast (principal) ==

== ENCOUNTER → 2023-08-20 | Outpatient (REF) | payer BC | LOC: M LAB REF 16:15 | PROVIDERS: ATTEND Internal Medicine | DX: N39.0 Urinary tract infection, site not specified (principal) ==

== ENCOUNTER → 2023-11-19 | Outpatient (CLI) | payer BC | LOC: M WHC 14:43 | PROVIDERS: ATTEND Internal Medicine | DX: Z12.31 Encounter for screening mammogram for malignant neoplasm of breast (principal) ==

== ENCOUNTER → 2024-11-19 | Outpatient (CLI) | payer BC | LOC: M WHC 14:02 | PROVIDERS: ATTEND Internal Medicine | DX: Z12.31 Encounter for screening mammogram for malignant neoplasm of breast (principal) ==

== ENCOUNTER → 2025-03-01 | Outpatient (CLI) | payer BC | LOC: M LAB 16:23 | PROVIDERS: ATTEND Internal Medicine | DX: M17.12 Unilateral primary osteoarthritis, left knee (principal); M25.562 Pain in left knee ==